=== PATIENT | female | born 1945 | race African-American/Black ===

== ENCOUNTER → 2017-09-04 | Outpatient (CLI) | payer OTHER ==
[2017-09-04 17:03] LABS: FREE T4 (FREE THYROXINE) 0.88 ng/dL (0.76-1.46); T4 (THYROXINE) 6.5 ug/dL (4.7-13.3); TSH (3RD GENERATION) 2.805 uIU/mL (0.358-3.74)
--- NOTE | 2017-09-05 08:47 | MRI ---
MRI BRAIN WITHOUT CONTRAST CLINICAL HISTORY: 72-year-old female with memory loss and headaches. COMPARISON: None. TECHNIQUE: Multiplanar, multisequence MR images of the brain were obtained without contrast. FINDINGS: There is no evidence of diffusion restriction. The craniocervical junction is normal. Pitui tary and optic nerve complex are normal. Multifocal punctate T2 FLAIR signal hyperintensities are pre sent within the periventricular and supraventricular white matter that are nonspecific in appearance but most likely to represent microvascular white matter ischemic changes. Normal signal characteristi cs and morphology are demonstrated within the cerebral cortex, corpus callosum, deep savage nuclei, bra instem and cerebellum. The major vascular flow voids, to include the dural venous sinuses, are intact . Age advanced cortical volume loss is present, with commensurate sulcal and ventricular prominence. The basilar cisterns are normal. The orbits and globes are within normal limits. The paranasal sinuses, tympanic cavities and mastoids are clear. Significant right parafalcine dural calcification anteriorly. IMPRESSION: 1. No acute ischemic or hemorrhagic insult. 2. Mild, chronic microvascular white matter ischemic disease with associated volume loss. Reported By:
== END ==
LOC: RAD 14:58
PROVIDERS: ATTEND Psychiatry & Neurology Neurology
DX: R41.3 Other amnesia (principal)
CPT/HCPCS: 36415; 70551; 82607; 82746; 84436; 84439; 84443; 86592; 95819